=== PATIENT | male | born 2000 | race Caucasian/White ===

== ENCOUNTER 2022-10-21 19:07 | Emergency (ER) | payer OTHER ==
[2022-10-21] MEDS ORDERED: Ibuprofen 200 MG TAB ONE (20:43)
== END 2022-10-21 21:15 | disposition home or self-care (01) ==
LOC: ERS 19:07
DX: S00.03XA Contusion of scalp, initial encounter (principal); S00.83XA Contusion of other part of head, initial encounter; F17.290 Nicotine dependence, other tobacco product, uncomplicated; W22.8XXA Striking against or struck by other objects, initial encounter
CPT/HCPCS: 99283